=== PATIENT | female | born 1985 ===

== ENCOUNTER 2017-07-17 13:52 | Observation (INO) | payer OTHER ==
[2017-07-17] MEDS ORDERED: Sodium Chloride 0.9% 1,000 ML IV STA (14:09)
--- NOTE | 2017-07-17 14:09 | ED PDOC ---
Arrival/HPI - General Chief Complaint: Back Pain Time Seen by Provider: 07/17/17 14:08 Historian: Patient, Other (boyfriend) - History of Present Illness Narrative History of Present Illness (Text): 07/17/17 1430 pt p/w + sudden onset of right flank/upper abd tenderness, just prior to ED arrival, stating pain was extremely severe at 30/10; pt states pain radiates down to her right groin, + felt urinary/bowel hesitancy, + urinated/defecated without any difficulties, no diarrhea/bleeding noted; pt denied urinary frequency; pt states no fever/chills, + sweats, + severe nausea/multiple episodes of vomiting x 4-5 episodes today; pt states no numbness/tingling, no fall/trauma/sick contact, no travel; pt with similiar complaints in the past but not this severe and no final diagnosis were rendered at that time; pt denied LOC, no other complaints; pt is here for further eval. Time/Duration: Prior to Arrival Symptom Onset: Sudden Symptom Course: Worsening Quality: Stabbing, Cramping Severity Level: 10, Severe Activities at Onset: Rest Context: Home Past Medical History - Provider Review Nursing Documentation Reviewed: Yes - Travel History Have you recently traveled outside [place] w/in the past 3 mons?: No - Past History Past History: Non-Contributing - Genitourinary/Gynecological Hx Uterine Cancer: Yes (s/p partial hysterectomy) Family/Social History - Physician Review Nursing Documentation Reviewed: Yes Family/Social History: No Known Family HX (mother with gallstones; NO family hx of kidney stones) Smoking Status: Unknown If Ever Smoked Hx Alcohol Use: No Hx Substance Use: No Hx Substance Use Treatment: No Allergies/Home Meds Allergies/Adverse Reactions: Allergies No Known Allergies Allergy (Verified 07/17/17 14:09) Home Medications: Home Meds Medication Instructions Recorded Confirmed No Known Home Med 07/17/17 07/17/17 Review of Systems - Review of Systems Constitutional: Normal Eyes: Normal ENT: Normal Respiratory: Normal Cardiovascular: Normal Gastrointestinal: Abdominal Pain, Nausea, Vomiting Genitourinary Female: Normal Musculoskeletal: Back Pain Skin: Normal Neurological: Normal Endocrine: Normal Hemo/Lymphatic: Normal Psychiatric: Normal Physical Exam Vital Signs Reviewed: Yes Vital Signs Temp Pulse Resp BP Pulse Ox 07/17/17 19:45 74 18 141/89 99 07/17/17 14:20 98.1 F 80 18 143/70 98 Temperature: Afebrile Blood Pressure: Hypertensive (elevated SBP) Pulse: Regular Respiratory Rate: Normal Appearance: Positive for: Well-Appearing, Other (very uncomfortable, pt is bend over and resting on her abd; severe distress due to pain; alert/awake, GCS = 15 , cooperative; follows command with ease) Pain Distress: Severe Mental Status: Positive for: Alert and Oriented X 3 - Systems Exam Head: Present: Atraumatic, Normocephalic Pupils: Present: PERRL, Other (no nystagmus, no photophobia, sclera anicteric, visual field intact b/l) Extroacular Muscles: Present: EOMI Conjunctiva: Present: Normal Ears: Present: Normal Mouth: Present: Normal Teeth, Other (mild dry oral mucosa, uvula/tongue are midline, no exudate/lesions, no drooling/stridor) Pharnyx: Present: Normal Nose (External): Present: Atraumatic Nose (Internal): Present: Normal Inspection Neck: Present: Normal Range of Motion, Trachea Midline, Other (intact ROM, no midline tenderness, no nuchal rigidity, no meningeal signs). No: MIDLINE TENDERNESS Respiratory/Chest: Present: Clear to Auscultation, Good Air Exchange, Other ( CTA b/l, no w/r/r, no accessory muscle use noted, no tachypenia) Cardiovascular: Present: Regular Rate and Rhythm, Normal S1, S2. No: Murmurs Abdomen: Present: Normal Bowel Sounds, Other (+ mild right mid abd tenderness, no bland's sign, no mcburney's point tenderness, well nourished/obese female, no guarding/rigidity/masses noted) Back: Present: CVA Tenderness, Other (no step off, no midline tenderness) Upper Extremity: Present: Normal Inspection, Normal ROM, NORMAL PULSES, Neurovascularly Intact, Capillary Refill < 2s Lower Extremity: Present: Normal Inspection, NORMAL PULSES, Normal ROM, Neurovascularly Intact, Capillary Refill < 2 s, Other (reflex +2/2 b/l). No: Gabrielle's Sign Neurological: Present: GCS=15, CN II-XII Intact, Speech Normal Skin: Present: Warm, Other (cap refill ~ 1sec, no ulcerations, no petechiae, no gross pallor noted) Psychiatric: Present: Alert, Oriented x 3 Medical Decision Making ED Course and Treatment: 07/17/17 14:10 Impression: sudden onset of right flank/abd pain; n/v i have consider all the differential diagnosis regarding pt's chief medical complaints/clinical findings, including but are not limited to: r/o appy, r/o stones, r/o complications from Uterine Ca A/P: right flank/abd pain - labs - iv - ct - ua - observe - supportive care 07/17/17 15:10 pt is feeling slight improvement pt states pain is now 8-9/10; pt is awaiting labs/ct results 07/17/17 15:30 pt is doing well pt states her pain is now 6/10 awaiting pt's UA and CT 07/17/17 18:11 pt continue to have episodic elevated right flank pain, requiring pain control given negative CT, but multiple pain complaints, will recommend patient for admission paging senior reservations agent med service pt is made aware of her medical results agrees with ED recommendation for admission 07/17/17 20:33 pt continues to have right flank/abd pain 1840 - i spoke to Dr Pradhan, senior reservations agent PCP, made aware, would like senior reservations agent SENIOR RESERVATIONS AGENT consulted before she admits patient 2019 - i spoke to Dr Muller, senior reservations agent pathology technologist, made aware, recommend's pain unlikely due to SENIOR RESERVATIONS AGENT, but will consult in the morning if consulted 0 - i spoke to Dr Pradhan, made aware, agrees with admission/obs Re-evaluation Time: 15:13 Reassessment Condition: Improving,but remains with symptoms - Lab Interpretations Lab Results: 07/17/17 14:20 07/17/17 14:20 Lab Results 07/17/17 16:00: Urine Color Yellow, Urine Appearance Clear, Urine pH 7.0, Ur Specific [place] 1.020, Urine Protein Negative, Urine Glucose (UA) Negative, Urine Ketones Negative, Urine Blood Negative, Urine Nitrate Negative, Urine Bilirubin Negative, Urine Urobilinogen 0.2, Ur Leukocyte Esterase Negative, Urine HCG, Qual Negative 07/17/17 14:20: Sodium 141, Potassium 4.3, Chloride 104, Carbon Dioxide 26, Anion Gap 16, BUN 10, Creatinine 0.6 L, Est GFR ( Amer) > 60, Est GFR ( Non-Af Amer) > 60, Random Glucose 165 H, Calcium 9.8, Total Bilirubin 0.5, AST 35, ALT 46, Alkaline Phosphatase 49, Total Protein 8.0, Albumin 4.5, Globulin 3.5, Albumin/Globulin Ratio 1.3, Lipase 132 07/17/17 14:20: PT 12.8 H, INR 1.12 H, APTT 27.9 07/17/17 14:20: WBC 15.1 H, RBC 4.50, Hgb 13.9, Hct 41.2, MCV 91.6, MCH 30.9, MCHC 33.7, RDW 12.4, Plt Count 273, MPV 10.6, Gran % 83.4 H, Lymph % (Auto) 13.3 L, [place] % (Auto) 3.1, Eos % (Auto) 0.1 L, Baso % (Auto) 0.1, Gran # 12.59 H , Lymph # (Auto) 2.0, [place] # (Auto) 0.5, Eos # (Auto) 0.0, Baso # (Auto) 0.02 I have reviewed the lab results: Yes Interpretation: Abnormal lab values (elevated GLUC/wbcs) - RAD Interpretation Narrative RAD Interpretations (Text): 07/17/17 18:11 PROCEDURE: CT Abdomen and Pelvis with contrast HISTORY: sudden onset R flank pain, r/o appy, ? stones COMPARISON: None available TECHNIQUE: Contrast dose: 100 mL Omnipaque 350 Radiation dose: Total exam DLP = 1245.03 mGy-cm. This CT exam was performed using one or more of the following dose reduction techniques: Automated exposure control, adjustment of the mA and/or kV according to patient size, and/or use of iterative reconstruction technique. FINDINGS: LOWER THORAX: No visible consolidation, pleural effusion, or pneumothorax. LIVER: Unremarkable. GALLBLADDER AND BILE DUCTS: Unremarkable. PANCREAS: Unremarkable. SPLEEN: Unremarkable. ADRENALS: Unremarkable. KIDNEYS AND URETERS: The kidneys enhance symmetrically. No hydronephrosis or obstructing calculus identified. VASCULATURE: No aortic aneurysm. BOWEL: Stomach is nondistended. Lack of oral contrast limits evaluation for bowel pathology. Bowel loops appear within normal limits of caliber without evidence of obstruction. APPENDIX: The appendix appears within normal limits of caliber. No secondary signs of acute appendicitis. PERITONEUM: No significant free fluid. No definite free air. LYMPH NODES: No bulky lymph nodes. BLADDER: Unremarkable. REPRODUCTIVE: The uterus is absent presumably due to hysterectomy. Bilateral heterogeneous partially cystic adnexa, possibly reflecting right greater than left polycystic ovaries. Correlate clinically and recommend pelvic ultrasound for further evaluation. BONES: No acute osseous abnormality is detected. OTHER FINDINGS: None. IMPRESSION: The uterus is absent presumably due to hysterectomy. Bilateral heterogeneous partially cystic adnexa, possibly reflecting right greater than left polycystic ovaries. Correlate clinically and recommend pelvic ultrasound for further evaluation. 07/17/17 20:37 FINDINGS: Uterus/cervix: Prior hysterectomy. Right ovary: The right ovary measures 4.3 x 3 x 3.8 cm. There are multiple small follicles and heterogeneous stromal echotexture. Normal blood flow. Left ovary: Left ovary measures 4.2 x 2.6 x 3.8 cm. There are multiple left ovarian follicles. There is a 1.5 cm cyst with a internal "daughter cyst" this indicates ovarian origin and usually indicates luteinized follicle.. There is a 2 cm hemorrhagic corpus luteum cyst. Normal blood flow. Free fluid: No free fluid. IMPRESSION: Prior hysterectomy with enlarged ovaries with benign-follicles bilaterally. Slightly increased echotexture of the right ovarian parenchyma. The diagnosis of polycystic ovarian syndrome is best made on the basis of clinical, laboratory and sonographic features. The classic sonographic features are hyperechoic stromal and increased volumes. None of the follicles have sonographic findings worrisome for malignancy Radiology Orders: 07/17/17 14:11 ABD & PELVIS IV CONTRAST ONLY [CT] Stat 07/17/17 18:56 TRANSVAGINAL [US] Stat Document Coordinator: Radiologist - Medication Orders Current Medication Orders: Discontinued Medications Famotidine (Pepcid) 20 mg IVP STAT STA Stop: 07/17/17 14:10 Last Admin: 07/17/17 14:28 Dose: 20 mg IVP Administration Document 07/17/17 14:28 SE (Rec: 07/17/17 14:28 SE [id number]) Charges for Administration # of IVP Administrations 1 Fentanyl (Fentanyl) 50 mcg IVP ONCE ONE Stop: 07/17/17 20:33 Last Admin: 07/17/17 21:01 Dose: 50 mcg MAR Pain Assessment Document 07/17/17 21:01 RD (Rec: 07/17/17 21:01 RD [id number]) Pain Reassessment Is this a pain reassessment? No Sleep Is patient sleeping during reassessment? No Presence of Pain Presence of Pain Yes IVP Administration Document 07/17/17 21:01 RD (Rec: 07/17/17 21:01 RD [id number]) Charges for Administration # of IVP Administrations 1 Sodium Chloride (Sodium Chloride 0.9%) 1,000 mls @ 1,000 mls/hr IV .Q1H STA Stop: 07/17/17 15:08 Last Admin: 07/17/17 14:29 Dose: 1,000 mls/hr eMAR Start Stop Document 07/17/17 14:29 SE (Rec: 07/17/17 14:29 SE [id number]) Intravenous Solution Start Date 07/17/17 Start Time 14:29 Ketorolac Tromethamine (Toradol) 30 mg IVP STAT STA Stop: 07/17/17 14:10 Last Admin: 07/17/17 14:28 Dose: 30 mg MAR Pain Assessment Document 07/17/17 14:28 SE (Rec: 07/17/17 14:29 SE [id number]) Pain Reassessment Is this a pain reassessment? No Sleep Is patient sleeping during reassessment? No Presence of Pain Presence of Pain Yes Pain Scale Used Pain Scale Used Numeric IVP Administration Document 07/17/17 14:28 SE (Rec: 07/17/17 14:29 SE [id number]) Charges for Administration # of IVP Administrations 1 Morphine Sulfate (Morphine) 8 mg IVP STAT STA Stop: 07/17/17 14:14 Last Admin: 07/17/17 14:31 Dose: 8 mg Comments: pulled 10 mg and wasted 2mg MAR Pain Assessment Document 07/17/17 14:31 SE (Rec: 07/17/17 14:31 SE [id number]) Pain Reassessment Is this a pain reassessment? No Sleep Is patient sleeping during reassessment? No Presence of Pain Presence of Pain Yes Pain Scale Used Pain Scale Used Numeric IVP Administration Document 07/17/17 14:31 SE (Rec: 07/17/17 14:31 SE [id number]) Charges for Administration # of IVP Administrations 1 Morphine Sulfate (Morphine) 4 mg IVP STAT STA Stop: 07/17/17 16:05 Last Admin: 07/17/17 16:16 Dose: Morphine Sulfate (Morphine) 4 mg IVP STAT STA Stop: 07/17/17 17:58 Last Admin: 07/17/17 18:19 Dose: 4 mg MAR Pain Assessment Document 07/17/17 18:19 RD (Rec: 07/17/17 18:19 RD [id number]) Pain Reassessment Is this a pain reassessment? No Sleep Is patient sleeping during reassessment? No Presence of Pain Presence of Pain Yes IVP Administration Document 07/17/17 18:19 RD (Rec: 07/17/17 18:19 RD [id number]) Charges for Administration # of IVP Administrations 1 Ondansetron HCl (Zofran Inj) 4 mg IVP STAT STA Stop: 07/17/17 14:10 Last Admin: 07/17/17 14:29 Dose: 4 mg IVP Administration Document 07/17/17 14:29 SE (Rec: 07/17/17 14:29 SE [id number]) Charges for Administration # of IVP Administrations 1 Disposition/Present on Arrival - Present on Arrival Any Indicators Present on Arrival: No History of DVT/PE: No History of Uncontrolled Diabetes: No Urinary Catheter: No History of Decub. Ulcer: No History Surgical Site Infection Following: None - Disposition Have Diagnosis and Disposition been Completed?: Yes Diagnosis: Intractable abdominal pain, Ovarian cyst Disposition: HOSPITALIZED Disposition Time: 20:37 Patient Plan: Admission, Observation Patient Problems: Current Active Problems Problem Status Onset Intractable abdominal pain Acute Ovarian cyst Acute Condition: STABLE Referrals: Niraj Us, [Primary Care Provider] - Follow up with primary Forms: [employer] ([employer]eless)
[2017-07-17] MEDS ORDERED: HYDROmorphone 1 mg/ml ISec IVP STA (14:11)
[2017-07-17] MEDS ORDERED: Morphine 2 mg/ml ISec IVP STA ×2 (14:13→16:04)
[2017-07-17] MEDS ORDERED: Iohexol 350 MG/100 ML VIAL ONE (14:30)
[2017-07-17 14:41] LABS: BASO # 0.02 K/mm3 (0.0-2.0); BASO % 0.1 % (0.0-3.0); EOS % 0.1 % (1.5-5.0); GRAN # 12.59 (1.4-6.5); GRAN % 83.4 % (50.0-68.0); HEMOGLOBIN 13.9 g/dL (12.0-16.0); LYMPH % 13.3 % (22.0-35.0); MEAN CELL VOLUME 91.6 fl (80.0-105.0); MEAN CORPUSCULAR HEMOGLOBIN 30.9 pg (25.0-35.0); MEAN CORPUSCULAR HGB CONC 33.7 g/dl (31.0-37.0); MEAN PLATELET VOLUME 10.6 fl (7.0-11.0); MONO # 0.5 (0.1-0.6); MONO % 3.1 % (1.0-6.0); RBC 4.5 10^6/uL (3.5-6.1); RED CELL DISTRIBUTION WIDTH 12.4 % (11.5-14.5); WHITE BLOOD COUNT 15.1 10^3/ul (4.5-11.0)
[2017-07-17 14:43] LABS: ALB/GLOB RATIO 1.3 (1.1-1.8); ALBUMIN 4.5 g/dL (3.0-4.8); ALT/SGPT 46 U/L (7-56); AST/SGOT 35 U/L (14-36); BLOOD UREA NITROGEN 10 mg/dL (7-21); CALCIUM 9.8 mg/dL (8.4-10.5); GFR AFRICAN-AMERICAN > 60; GFR NON-AFRICAN AMERICAN > 60; LIPASE 132 U/L (23-300)
[2017-07-17 14:44] LABS: INR 1.12 (0.93-1.08); PARTIAL THROMBOPLASTIN TIME 27.9 Seconds (25.1-36.5); PROTHROMBIN TIME 12.8 SECONDS (9.4-12.5)
[2017-07-17 16:21] LABS: URINE BILIRUBIN NEGATIVE (NEGATIVE); URINE BLOOD NEGATIVE (NEGATIVE); URINE GLUCOSE (UA) NEGATIVE (NEGATIVE); URINE LEUKOCYTE ESTERASE NEGATIVE Leu/uL (NEGATIVE); URINE NITRATE NEGATIVE (NEGATIVE); URINE PROTEIN NEGATIVE mg/dL (<30 mg/dL); URINE UROBILINOGEN 0.2 E.U./dL (<1 E.U./dL)
[2017-07-17 16:29] LABS: URINE APPEARANCE CLEAR (CLEAR); URINE COLOR YELLOW (YELLOW)
[2017-07-17 16:31] LABS: HCG,QUALITATIVE URINE NEGATIVE (NEGATIVE)
[2017-07-17] MEDS ORDERED: Morphine 4 mg/ml ISec IVP STA (17:57)
--- NOTE | 2017-07-17 17:59 | CT ---
PROCEDURE: CT Abdomen and Pelvis with contrast HISTORY: sudden onset R flank pain, r/o appy, ? stones COMPARISON: None available TECHNIQUE: Contrast dose: 100 mL Omnipaque 350 Radiation dose: Total exam DLP = 1245.03 mGy-cm. This CT exam was performed using one or more of the following dose reduction techniques: Automated exposure control, adjustment of the mA and/or kV according to patient size, and/or use of iterative reconstruction technique. FINDINGS: LOWER THORAX: No visible consolidation, pleural effusion, or pneumothorax. LIVER: Unremarkable. GALLBLADDER AND BILE DUCTS: Unremarkable. PANCREAS: Unremarkable. SPLEEN: Unremarkable. ADRENALS: Unremarkable. KIDNEYS AND URETERS: The kidneys enhance symmetrically. No hydronephrosis or obstructing calculus identified. VASCULATURE: No aortic aneurysm. BOWEL: Stomach is nondistended. Lack of oral contrast limits evaluation for bowel pathology. Bowel loops appear within normal limits of caliber without evidence of obstruction. APPENDIX: The appendix appears within normal limits of caliber. No secondary signs of acute appendicitis. PERITONEUM: No significant free fluid. No definite free air. LYMPH NODES: No bulky lymph nodes. BLADDER: Unremarkable. REPRODUCTIVE: The uterus is absent presumably due to hysterectomy. Bilateral heterogeneous partially cystic adnexa, possibly reflecting right greater than left polycystic ovaries. Correlate clinically and recommend pelvic ultrasound for further evaluation. BONES: No acute osseous abnormality is detected. OTHER FINDINGS: None. IMPRESSION: The uterus is absent presumably due to hysterectomy. Bilateral heterogeneous partially cystic adnexa, possibly reflecting right greater than left polycystic ovaries. Correlate clinically and recommend pelvic ultrasound for further evaluation.
[2017-07-17] MEDS: Morphine 5 MG/ML SYRINGE IVP PRN (23:06)
[2017-07-17] MEDS: Naproxen 550 mg Tab PO SCH (23:06)
[2017-07-17 23:36] VITALS: BMI 37.2
[2017-07-18] MEDS: Morphine 5 MG/ML SYRINGE IVP PRN ×2 (05:36→11:28)
[2017-07-18] MEDS ORDERED: Pantoprazole 40 mg EC Tab PO SCH (06:30)
[2017-07-18 06:48] LABS: BASO # 0.01 K/mm3 (0.0-2.0); BASO % 0.1 % (0.0-3.0); EOS % 0.3 % (1.5-5.0); GRAN # 7.44 (1.4-6.5); GRAN % 62.7 % (50.0-68.0); HEMOGLOBIN 12.1 g/dL (12.0-16.0); LYMPH # 3.5 (1.2-3.4); LYMPH % 29.8 % (22.0-35.0); MEAN CELL VOLUME 92.2 fl (80.0-105.0); MEAN CORPUSCULAR HEMOGLOBIN 30.3 pg (25.0-35.0); MEAN CORPUSCULAR HGB CONC 32.9 g/dl (31.0-37.0); MEAN PLATELET VOLUME 10.4 fl (7.0-11.0); MONO # 0.8 (0.1-0.6); MONO % 7.1 % (1.0-6.0); RBC 3.99 10^6/uL (3.5-6.1); RED CELL DISTRIBUTION WIDTH 12.5 % (11.5-14.5); WHITE BLOOD COUNT 11.9 10^3/ul (4.5-11.0)
[2017-07-18 07:24] LABS: ALB/GLOB RATIO 1.1 (1.1-1.8); ALBUMIN 3.8 g/dL (3.0-4.8); ALT/SGPT 31 U/L (7-56); AST/SGOT 28 U/L (14-36); BLOOD UREA NITROGEN 12 mg/dL (7-21); CALCIUM 8.9 mg/dL (8.4-10.5); GFR AFRICAN-AMERICAN > 60; GFR NON-AFRICAN AMERICAN > 60
[2017-07-18 08:22] VITALS: BP 127/72; PULSE 82; RESP 20; TEMP 98.1; O2SAT 96
[2017-07-18] MEDS: Naproxen 550 mg Tab PO SCH (09:04)
[2017-07-18] MEDS ORDERED: cefTRIAXone 1 gm 1 GM/100 ML BAG IVPB SCH (10:00)
--- NOTE | 2017-07-18 11:31 | US ---
HISTORY: r/o torsion COMPARISON: Enhanced Abdomen Pelvis CT examination dated 07/17/2017. TECHNIQUE: Transabdominal and transvaginal pelvic ultrasound was performed for evaluation of cystic adnexal findings in preliminary abdomen and pelvis CT performed 07/17/2017 as well. FINDINGS: UTERUS: Uterus is not identified status post prior hysterectomy. ENDOMETRIUM: As above. CERVIX: As above. RIGHT OVARY: Measures 4.3 x 3.0 x 3.8 cm. Parenchymal echotexture appears inhomogeneous with a few small follicles identified. The largest measures 9 mm greatest dimension. Spectral arterial blood flow pattern appears grossly unremarkable. LEFT OVARY: Measures left ovary measures 4.2 x 2.6 x 3.8 cm cm. Parenchymal echotexture is also inhomogeneous at the left ovary. 1.5 x 1.8 cm cyst contains a small internal cyst measuring 0.7 cm potentially reflecting a luteinized follicle. In addition, a complex cyst with a lace-like internal echotexture pattern is appreciated medial to the smaller cyst described above and measures 2.1 by 1.8 cm suggestive of a hemorrhagic cyst with endometrioma considered in the differential diagnosis. Normal arterial blood flow pattern is appreciated. FREE FLUID: No significant free fluid noted. OTHER FINDINGS: None. IMPRESSION: Uterus not identified in this patient status status post prior hysterectomy. Right ovarian follicles are identified infrequently with two complex left to the apparent cysts as discussed above. Larger of the two cysts measures 2.1 cm in suggests hemorrhagic cysts with endometrium in the different diagnosis. Consider possible polycystic ovarian disease particularly given inhomogeneous parenchymal echogenicity of both ovaries. Concordant preliminary report from [facility], 07/17/2017.
--- NOTE | 2017-07-19 09:16 | DS ---
HISTORY OF PRESENT ILLNESS: Patient is 31-year-old, seen and examined, complained of right flank pain radiating towards the right lower abdomen. Denies any urinary or bowel symptoms. States morphine did help. Complained of pain upon moving. She has a history of uterine carcinoma and has a hysterectomy done a couple of years ago. PHYSICAL EXAMINATION GENERAL: On examination, she looks awake, alert, oriented, communicative. VITAL SIGNS: Patient is afebrile. Pulse 82, respirations 20, blood pressure 97/72. LUNGS: Bilateral good airflow. No rhonchi or crackles. HEART: S1, S2 audible. ABDOMEN: Soft, nontender. No rebound. No guarding. NEUROLOGIC: Patient is awake and alert, able to communicate. DATA: CT scan of the abdomen and pelvis shows ovarian cyst, uterus is absent, bilateral heterogeneous partially cystic adnexa consistent with polycystic ovary. Transvaginal sonogram shows uterus is not identified, status post hysterectomy;, right ovarian follicles are identified with two complex left ovarian cysts that is 2.1 cm suggestive of hemorrhagic cyst with no endometrium in the differential. ASSESSMENT AND PLAN 1. Lower back pain. 2. Ovarian cyst. 3. History of uterine carcinoma. So, plan is the patient was admitted for pain control. She will be given NSAID and muscle relaxant. I discussed with Dr. Farida Muller. She wants her to be discharged and will follow up in her office and we will give Naprosyn and Flexeril and see the response and she can be discharged later on today. Lilia Pradhan MD
== END 2017-07-18 17:33 | disposition home or self-care (01) ==
LOC: ED 13:52 → ERH 21:12 → 3RNO 22:53
PROVIDERS: ADMIT Internal Medicine; ATTEND Internal Medicine
DX: E28.2 Polycystic ovarian syndrome (principal); Z85.42 Personal history of malignant neoplasm of other parts of uterus; M54.5 Low back pain; Z90.710 Acquired absence of both cervix and uterus
CPT/HCPCS: 36415; 74177; 76830; 80053; 81003; 83690; 84703; 85025; 85610; 85730; 96365; 96375; 96376; 99285; G0378; J0696; J1885; J2270; J2405; J3010; J7040; Q9967

== ENCOUNTER 2018-07-29 11:11 | Emergency (ER) | payer OTHER ==
[2018-07-29 11:11] VITALS: BMI 37.2
[2018-07-29 11:42] VITALS: RESP 18; TEMP 97.7
[2018-07-29] MEDS ORDERED: Sodium Chloride 0.9% 1,000 ML IV STA (11:57)
[2018-07-29] MEDS ORDERED: Morphine 4 mg/ml ISec IVP STA (11:57)
--- NOTE | 2018-07-29 11:57 | ED PDOC ---
Arrival/HPI - General Historian: Patient - History of Present Illness Narrative History of Present Illness (Text): 07/29/18 11:53 32 y/o female, pmh including ovarian cyst, nkda, c/o lt. sided flank pain today with no fall or trauma. Aching and sharp pain, admits nausea but no vomiting, no diarrhea, no night sweat, no numbness or tingling, no diarrhea, no other medical or psychological complaints. <Sachin Bueno - Last Filed: 07/29/18 16:29> <Russ Bee - Last Filed: 07/29/18 16:53> - General Chief Complaint: Back Pain Past Medical History - Provider Review Nursing Documentation Reviewed: Yes - Past History Past History: Non-Contributing - Infectious Disease Hx of Infectious Diseases: None - Cardiac Hx Cardiac Disorders: No - Pulmonary Hx Respiratory Disorders: Yes Hx Pneumonia: Yes (2012) - Neurological Hx Neurological Disorder: No - HEENT Hx HEENT Disorder: No - Renal Hx Renal Disorder: No - Endocrine/Metabolic Hx Endocrine Disorders: Yes Hx Hypothyroidism: Yes (no longer taking synthroid) - Hematological/Oncological Hx Blood Disorders: Yes Hx Anemia: Yes (blood transfusion) Hx Cancer: Yes (Uterine) - Integumentary Hx Dermatological Disorder: No - Musculoskeletal/Rheumatological Hx Musculoskeletal Disorders: No Hx Falls: No Hx Fractures: Yes (left elbow and 5th toe) - Gastrointestinal Hx Gastrointestinal Disorders: No - Genitourinary/Gynecological Hx Genitourinary Disorders: Yes Hx Urinary Tract Infection: Yes Other/Comment: uterine Ca- hysterectomy 2016 - Psychiatric Hx Psychophysiologic Disorder: Yes Hx Depression: Yes Hx Substance Use: No - Anesthesia Hx Anesthesia Reactions: No <Sachin Bueno - Last Filed: 07/29/18 16:29> Family/Social History - Physician Review Nursing Documentation Reviewed: Yes Family/Social History: Unknown Family HX Smoking Status: Former Smoker Hx Alcohol Use: No Hx Substance Use: No Hx Substance Use Treatment: No <Sachin Bueno - Last Filed: 07/29/18 16:29> Allergies/Home Meds <Sachin Bueno - Last Filed: 07/29/18 16:29> <Russ Bee - Last Filed: 07/29/18 16:53> Allergies/Adverse Reactions: Allergies No Known Allergies Allergy (Verified 07/29/18 11:42) Review of Systems - Review of Systems Constitutional: absent: Fatigue, Fevers Eyes: absent: Vision Changes ENT: absent: Hearing Changes Respiratory: absent: SOB, Cough Cardiovascular: absent: Chest Pain Gastrointestinal: Abdominal Pain. absent: Diarrhea, Nausea, Vomiting Musculoskeletal: Back Pain. absent: Arthralgias, Neck Pain, Joint Swelling Skin: absent: Rash, Pruritis Neurological: absent: Headache Psychiatric: absent: Anxiety, Depression, Suicidal Ideation <Sachin Bueno - Last Filed: 07/29/18 16:29> Physical Exam Vital Signs Reviewed: Yes Vital Signs Temp Pulse Resp BP Pulse Ox 07/29/18 11:37 97.7 F 74 18 119/87 97 Temperature: Afebrile Blood Pressure: Normal Pulse: Regular Respiratory Rate: Normal Appearance: Positive for: Well-Appearing, Non-Toxic, Comfortable Pain Distress: None Mental Status: Positive for: Alert and Oriented X 3 - Systems Exam Head: Present: Atraumatic, Normocephalic Pupils: Present: PERRL Extroacular Muscles: Present: EOMI Conjunctiva: Present: Normal Mouth: Present: Moist Mucous Membranes Neck: Present: Normal Range of Motion Respiratory/Chest: Present: Clear to Auscultation, Good Air Exchange. No: Respiratory Distress, Accessory Muscle Use Cardiovascular: Present: Regular Rate and Rhythm, Normal S1, S2. No: Murmurs Abdomen: No: Tenderness, Distention, Peritoneal Signs Back: Present: Normal Inspection, CVA Tenderness (lt.). No: Midline Tenderness, Paraspinal Tenderness, Pain with Leg Raise, Decubitus Ulcer Upper Extremity: Present: Normal Inspection. No: Cyanosis, Edema Lower Extremity: Present: Normal Inspection. No: Edema Neurological: Present: GCS=15, CN II-XII Intact, Speech Normal Skin: Present: Warm, Dry, Normal Color. No: Rashes Psychiatric: Present: Alert, Oriented x 3, Normal Insight, Normal Concentration <Sachin Bueno - Last Filed: 07/29/18 16:29> Vital Signs Temp Pulse Resp BP Pulse Ox 07/29/18 16:51 92 H 18 118/84 99 07/29/18 11:37 97.7 F 74 18 119/87 97 <Russ Bee - Last Filed: 07/29/18 16:53> Medical Decision Making ED Course and Treatment: 07/29/18 12:01 -Lab -CT abdomen and pelvis -IVF/morphine/reglan -Observe and reassess 07/29/18 15:23 -Pt. in pain, request more pain medication, toradol IV ordered for her. 07/29/18 16:29 -Urine hcg is negative -Labs show no acute findings -UA show no UTI -CT abdomen and pelvis: Hysterectomy. Complex 2.3 cm indeterminate left adnexal mass, possibly hemorrhagic or complex cyst. Probable right ovarian cyst. Further evaluation with ultrasound may be considered. Urinary bladder contents appear high density; correlate for recent outside imaging and possibility of residual contrast. Further evaluation with ultrasound may be considered if indicated. -Transvaginal sonogram: The patient is status post hysterectomy. The right ovary measures approximately 3.0 x 2.3 x 2.7 cm and contains 1.6 cm cyst. The left ovary measures approximately 2.9 x 2.5 x 2.7 cm and contains 1.7 x 0.9 x 0 9 cm 0.7 x 0.9 x 0.6 cm complex/septated cysts. In the right adnexa, there are 2 indeterminate complex partially cystic masses measuring approximately 1.6 x 1.4 x 1.5 cm and 2.8 x 2.5 x 2.9 cm; correlate clinically for possibility of complex cysts however neoplasm is not excluded. 6 week ultrasound follow-up recommended. Further evaluation with outpatient pelvic MRI may also be considered if indicated. -Pain control, feels better, sleeping. -Discharge home with toradol po, zofran, follow up with your own pmd and obgyn, repeat sonogram in 6 weeks for routine follow up, return to the ER for any new or worsening signs or symptoms. - RAD Interpretation Radiology Orders: Transvaginal sonogram: Indication: ovarian cyst? Comparison: CT abdomen pelvis without contrast performed 07/29/18, transvaginal ultrasound performed 07/17/17 Technique: Transvaginal pelvic ultrasound Findings: The patient is status post hysterectomy. The right ovary measures approximately 3.0 x 2.3 x 2.7 cm and contains 1.6 cm cyst. The left ovary measures approximately 2.9 x 2.5 x 2.7 cm and contains 1.7 x 0.9 x 0 9 cm 0.7 x 0.9 x 0.6 cm complex/septated cysts. In the right adnexa, there are 2 complex partially cystic masses measuring approximately 1.6 x 1.4 x 1.5 cm and 2.8 x 2.5 x 2.9 cm; correlate clinically for possibility of complex cysts however neoplasm is not excluded. Impression: The patient is status post hysterectomy. The right ovary measures approximately 3.0 x 2.3 x 2.7 cm and contains 1.6 cm cyst. The left ovary measures approximately 2.9 x 2.5 x 2.7 cm and contains 1.7 x 0.9 x 0 9 cm 0.7 x 0.9 x 0.6 cm complex/septated cysts. In the right adnexa, there are 2 indeterminate complex partially cystic masses measuring approximately 1.6 x 1.4 x 1.5 cm and 2.8 x 2.5 x 2.9 cm; correlate clinically for possibility of complex cysts however neoplasm is not excluded. 6 week ultrasound follow-up recommended. Further evaluation with outpatient pelvic MRI may also be considered if indicated. CT abdomen and pelvis: PROCEDURE: CT Abdomen and Pelvis without Oral or IV contrast. HISTORY: lt. flank pain x 1 day COMPARISON: None available. CT abdomen pelvis with IV contrast performed 219 TECHNIQUE: Contiguous axial images of the abdomen and pelvis. No oral or IV contrast administered. Coronal and Sagittal reformats generated and reviewed. Radiation dose: Total exam DLP = 1114.9 mGy-cm. This CT exam was performed using one or more of the following dose reduction techniques: Automated exposure control, adjustment of the mA and/or kV according to patient size, and/or use of iterative reconstruction technique. FINDINGS: There is limited evaluation of the solid organs without the administration of IV contrast. LOWER THORAX: No visible consolidation, pleural effusion, or pneumothorax. Small hiatal hernia. LIVER: Unremarkable unenhanced appearance. GALLBLADDER AND BILE DUCTS: Unremarkable unenhanced appearance. PANCREAS: Unremarkable unenhanced appearance. SPLEEN: Unremarkable unenhanced appearance. ADRENALS: Unremarkable unenhanced appearance. KIDNEYS AND URETERS: No hydronephrosis or obstructing renal calculus. BLADDER: Urinary bladder contents appear high density; correlate for recent outside imaging and possibility of residual contrast. REPRODUCTIVE: Hysterectomy. Complex 2.3 cm indeterminate left adnexal mass, possibly hemorrhagic or complex cyst. Probable right ovarian cyst. APPENDIX: The appendix appears within normal limits of caliber. No secondary signs of acute appendicitis. BOWEL: The stomach is nondistended. Lack of oral contrast limits evaluation for bowel pathology. The bowel loops appear within normal limits of caliber without evidence of intestinal obstruction. PERITONEUM: No significant free fluid. No definite free air. LYMPH NODES: No bulky lymphadenopathy identified. VASCULATURE: No significant atherosclerotic aortic calcifications identified. No aortic aneurysm. BONES: No acute osseous abnormality is detected. OTHER FINDINGS: None. IMPRESSION: Hysterectomy. Complex 2.3 cm indeterminate left adnexal mass, possibly hemorrhagic or complex cyst. Probable right ovarian cyst. Further evaluation with ultrasound may be considered. Urinary bladder contents appear high density; correlate for recent outside imaging and possibility of residual contrast. Further evaluation with ultrasound may be considered if indicated. 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 <Sachin Bueno - Last Filed: 07/29/18 16:29> - Lab Interpretations Lab Results: Total Bilirubin 0.5 mg/dL (0.2-1.3) 07/29/18 11:55 AST 31 U/L (14-36) 07/29/18 11:55 ALT 19 U/L (7-56) 07/29/18 11:55 Alkaline Phosphatase 54 U/L (38-126) 07/29/18 11:55 Total Protein 8.6 g/dL (5.8-8.3) H 07/29/18 11:55 Albumin 4.6 g/dL (3.0-4.8) 07/29/18 11:55 Globulin 4.0 gm/dL 07/29/18 11:55 Albumin/Globulin Ratio 1.2 (1.1-1.8) 07/29/18 11:55 Lipase 67 U/L (23-300) 07/29/18 11:55 Urine Color Yellow (YELLOW) 07/29/18 11:55 Urine Appearance Clear (CLEAR) 07/29/18 11:55 Urine pH 6.5 (4.7-8.0) 07/29/18 11:55 Ur Specific [place] >= 1.030 (1.005-1.035) 07/29/18 11:55 Urine Protein Negative mg/dL (<30 mg/dL) 07/29/18 11:55 Urine Glucose (UA) Negative mg/dL (NEGATIVE) 07/29/18 11:55 Urine Ketones Negative mg/dL (NEGATIVE) 07/29/18 11:55 Urine Blood Negative (NEGATIVE) 07/29/18 11:55 Urine Nitrate Negative (NEGATIVE) 07/29/18 11:55 Urine Bilirubin Negative (NEGATIVE) 07/29/18 11:55 Urine Urobilinogen 0.2 E.U./dL (<1 E.U./dL) 07/29/18 11:55 Ur Leukocyte Esterase Negative Sumi/uL (NEGATIVE) 07/29/18 11:55 - RAD Interpretation Radiology Orders: 07/29/18 11:57 ABD & PELVIS W/O PO OR IV CONT [CT] Stat 07/29/18 13:03 TRANSVAGINAL [US] Stat - Medication Orders Current Medication Orders: Discontinued Medications Sodium Chloride (Sodium Chloride 0.9%) 1,000 mls @ 999 mls/hr IV .Q1H1M STA Stop: 07/29/18 12:57 Last Admin: 07/29/18 12:55 Dose: 999 mls/hr eMAR Start Stop Document 07/29/18 12:55 HN (Rec: 07/29/18 12:55 [place] [facility] [place] Intravenous Solution Start Date 07/29/18 Start Time 12:55 Ketorolac Tromethamine (Toradol) 30 mg IVP STAT STA Stop: 07/29/18 13:02 Last Admin: 07/29/18 15:31 Dose: 30 mg MAR Pain Assessment Document 07/29/18 15:31 SS (Rec: 07/29/18 15:31 [place] [facility] [place] Pain Reassessment Is this a pain reassessment? Yes Sleep Is patient sleeping during reassessment? No Presence of Pain Presence of Pain Yes Pain Scale Used Protocol: PSCALES Pain Scale Used Numeric IVP Administration Document 07/29/18 15:31 SS (Rec: 07/29/18 15:31 [place] [facility] [place] Charges for Administration # of IVP Administrations 1 Metoclopramide HCl (Reglan) 10 mg IVP STAT STA Stop: 07/29/18 11:59 Last Admin: 07/29/18 12:56 Dose: 10 mg IVP Administration Document 07/29/18 12:56 HN (Rec: 07/29/18 12:56 HN [facility] [place] Charges for Administration # of IVP Administrations 1 Morphine Sulfate (Morphine) 4 mg IVP STAT STA Stop: 07/29/18 11:58 Last Admin: 07/29/18 12:55 Dose: 4 mg MAR Pain Assessment Document 07/29/18 12:55 HN (Rec: 07/29/18 12:56 HN [facility] [place] Pain Reassessment Is this a pain reassessment? Yes Sleep Is patient sleeping during reassessment? 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 <Sachin Bueno - Last Filed: 07/29/18 16:29> - PA / STEAM PIPE FITTER / Resident Statement JEFFREY has reviewed & agrees with the documentation as recorded. <Russ Bee - Last Filed: 07/29/18 16:53> Disposition/Present on Arrival - Present on Arrival Any Indicators Present on Arrival: No History of DVT/PE: No History of Uncontrolled Diabetes: No Urinary Catheter: No History of Decub. Ulcer: No History Surgical Site Infection Following: None - Disposition Have Diagnosis and Disposition been Completed?: Yes Disposition Time: 15:31 Patient Plan: Discharge <Sachin Bueno - Last Filed: 07/29/18 16:29> <Russ Bee - Last Filed: 07/29/18 16:53> - Disposition Diagnosis: Ovarian cyst Disposition: HOME/ ROUTINE Condition: GOOD Additional Instructions: -Discharge home with toradol po, zofran, follow up with your own pmd and obgyn, repeat sonogram in 6 weeks for routine follow up, return to the ER for any new or worsening signs or symptoms. Prescriptions: Ketorolac Tromethamine [Toradol] 10 mg PO QID PRN #16 tab PRN Reason: Other Ondansetron [Zofran] 4 mg PO Q8H PRN #10 tab PRN Reason: Nausea/Vomiting Referrals: Moshe Marks MD [Staff Provider] - Follow up with primary Izabella Castillo MD [Medical Doctor] - [place] up with primary [facility] [place] [facility] [place] - Follow up with primary Forms: [facility] (Taiwanese), WORK NOTE
--- NOTE | 2018-07-29 12:45 | CT ---
PROCEDURE: CT Abdomen and Pelvis without Oral or IV contrast. HISTORY: lt. flank pain x 1 day COMPARISON: None available. CT abdomen pelvis with IV contrast performed 219 TECHNIQUE: Contiguous axial images of the abdomen and pelvis. No oral or IV contrast administered. Coronal and Sagittal reformats generated and reviewed. Radiation dose: Total exam DLP = 1114.9 mGy-cm. This CT exam was performed using one or more of the following dose reduction techniques: Automated exposure control, adjustment of the mA and/or kV according to patient size, and/or use of iterative reconstruction technique. FINDINGS: There is limited evaluation of the solid organs without the administration of IV contrast. LOWER THORAX: No visible consolidation, pleural effusion, or pneumothorax. Small hiatal hernia. LIVER: Unremarkable unenhanced appearance. GALLBLADDER AND BILE DUCTS: Unremarkable unenhanced appearance. PANCREAS: Unremarkable unenhanced appearance. SPLEEN: Unremarkable unenhanced appearance. ADRENALS: Unremarkable unenhanced appearance. KIDNEYS AND URETERS: No hydronephrosis or obstructing renal calculus. BLADDER: Urinary bladder contents appear high density; correlate for recent outside imaging and possibility of residual contrast. REPRODUCTIVE: Hysterectomy. Complex 2.3 cm indeterminate left adnexal mass, possibly hemorrhagic or complex cyst. Probable right ovarian cyst. APPENDIX: The appendix appears within normal limits of caliber. No secondary signs of acute appendicitis. BOWEL: The stomach is nondistended. Lack of oral contrast limits evaluation for bowel pathology. The bowel loops appear within normal limits of caliber without evidence of intestinal obstruction. PERITONEUM: No significant free fluid. No definite free air. LYMPH NODES: No bulky lymphadenopathy identified. VASCULATURE: No significant atherosclerotic aortic calcifications identified. No aortic aneurysm. BONES: No acute osseous abnormality is detected. OTHER FINDINGS: None. IMPRESSION: Hysterectomy. Complex 2.3 cm indeterminate left adnexal mass, possibly hemorrhagic or complex cyst. Probable right ovarian cyst. Further evaluation with ultrasound may be considered. Urinary bladder contents appear high density; correlate for recent outside imaging and possibility of residual contrast. Further evaluation with ultrasound may be considered if indicated.
[2018-07-29 13:22] LABS: PH,URINE 6.5 (4.7-8.0); URINE BILIRUBIN NEGATIVE (NEGATIVE); URINE BLOOD NEGATIVE (NEGATIVE); URINE GLUCOSE (UA) NEGATIVE (NEGATIVE); URINE LEUKOCYTE ESTERASE NEGATIVE Leu/uL (NEGATIVE); URINE PROTEIN NEGATIVE mg/dL (<30 mg/dL); URINE UROBILINOGEN 0.2 E.U./dL (<1 E.U./dL)
[2018-07-29 13:23] LABS: BASO # 0.04 K/mm3 (0.0-2.0); BASO % 0.4 % (0.0-3.0); EOS # 0.1 (0.0-0.7); EOS % 1.1 % (1.5-5.0); HEMOGLOBIN 13.6 g/dL (12.0-16.0); LYMPH # 2.5 (1.2-3.4); LYMPH % 25.8 % (22.0-35.0); MEAN CELL VOLUME 92.1 fl (80.0-105.0); MEAN CORPUSCULAR HEMOGLOBIN 30.6 pg (25.0-35.0); MEAN CORPUSCULAR HGB CONC 33.3 g/dl (31.0-37.0); MEAN PLATELET VOLUME 10.7 fl (7.0-11.0); MONO # 0.5 (0.1-0.6); MONO % 4.8 % (1.0-6.0); RBC 4.44 10^6/uL (3.5-6.1); RED CELL DISTRIBUTION WIDTH 12.8 % (11.5-14.5); WHITE BLOOD COUNT 9.8 10^3/uL (4.5-11.0)
[2018-07-29 13:25] LABS: URINE APPEARANCE CLEAR (CLEAR); URINE COLOR YELLOW (YELLOW)
[2018-07-29 13:26] LABS: ALB/GLOB RATIO 1.2 (1.1-1.8); ALBUMIN 4.6 g/dL (3.0-4.8); ALT/SGPT 19 U/L (7-56); AST/SGOT 31 U/L (14-36); BLOOD UREA NITROGEN 13 mg/dL (7-21); CALCIUM 9.8 mg/dL (8.4-10.5); GFR NON-AFRICAN AMERICAN > 60; LIPASE 67 U/L (23-300)
--- NOTE | 2018-07-29 15:09 | US ---
Indication: ovarian cyst? Comparison: CT abdomen pelvis without contrast performed 07/29/18, transvaginal ultrasound performed 07/17/17 Technique: Transvaginal pelvic ultrasound Findings: The patient is status post hysterectomy. The right ovary measures approximately 3.0 x 2.3 x 2.7 cm and contains 1.6 cm cyst. The left ovary measures approximately 2.9 x 2.5 x 2.7 cm and contains 1.7 x 0.9 x 0 9 cm 0.7 x 0.9 x 0.6 cm complex/septated cysts. In the right adnexa, there are 2 complex partially cystic masses measuring approximately 1.6 x 1.4 x 1.5 cm and 2.8 x 2.5 x 2.9 cm; correlate clinically for possibility of complex cysts however neoplasm is not excluded. Impression: The patient is status post hysterectomy. The right ovary measures approximately 3.0 x 2.3 x 2.7 cm and contains 1.6 cm cyst. The left ovary measures approximately 2.9 x 2.5 x 2.7 cm and contains 1.7 x 0.9 x 0 9 cm 0.7 x 0.9 x 0.6 cm complex/septated cysts. In the right adnexa, there are 2 indeterminate complex partially cystic masses measuring approximately 1.6 x 1.4 x 1.5 cm and 2.8 x 2.5 x 2.9 cm; correlate clinically for possibility of complex cysts however neoplasm is not excluded. 6 week ultrasound follow-up recommended. Further evaluation with outpatient pelvic MRI may also be considered if indicated.
[2018-07-29 16:52] VITALS: BP 118/84; PULSE 92; O2SAT 99
== END 2018-07-29 16:50 | disposition home or self-care (01) ==
LOC: ED 11:11
DX: N83.201 Unspecified ovarian cyst, right side (principal); Z85.42 Personal history of malignant neoplasm of other parts of uterus; Z90.710 Acquired absence of both cervix and uterus
CPT/HCPCS: 74176; 76830; 80053; 81003; 81025; 83690; 85025; 96374; 96375; 99284; J1885; J2270; J2765; J7030